=== PATIENT | male | born 1980 | race African-American/Black ===

== ENCOUNTER 2019-12-01 23:12 | Inpatient (IN) ==
[2019-12-01] MEDS ORDERED: CATAPRES PO ONE (23:58)
--- NOTE | 2019-12-02 00:07 | PROVIDER DOCUMENTATION ---
HPI-Syncope/Dizziness - General Chief Complaint: High Blood Sugar Stated Complaint: DIABETES RELATED Time Seen by Provider: 12/01/19 23:49 Source: patient Allergies/Adverse Reactions: Patient Allergies Allergy/AdvReac Type Severity Reaction Status Date / Time No Known Allergies Allergy Verified 12/02/19 04:26 Home Medications: Home Medication List Medication Instructions Recorded Confirmed Last Taken Type Lisinopril 40 mg PO DAILY 12/01/19 12/01/19 Unknown History Metformin HCl 1,000 mg PO BID 12/01/19 12/01/19 Unknown History - History of Present Illness-Syncope/Dizzy Nature of Presenting Problem: Pt is a 39 year old black male with type 2 diabetes and HTN, 2nd visit to [facility] for uncontrolled nausea, vomiting with HTN and near syncope. Initially seen by Dr. Bere sánchez at [facility]. Patient reports that he almost passed out today. Since discharge from [facility] several hours ago, patient continues to feel dizzy , has vomited 4 more times. If witnessed syncope, by whom?: Prior Episodes: reports: multiple episodes today Onset/Duration: reports: abrupt Timing: reports: still present Position/Activity at time of episode: reports: sitting Symptoms prior to episode: reports: headache, lightheaded, visual disturbance, nausea/vomiting. denies: abdominal pain, confusion, diaphoresis, recent head trauma Context: reports: felt faint, almost passed out, other (high glucose). denies: lost consciousness, became unresponsive, collapsed, incontinent of urine, incontinent of stool, lost pulse, seizure activity observed Loss of Consciousness: no loss of consciousness Location of injury. (If syncope resulted in an injury.): reports: none Current Symptoms: reports: nausea, weakness, dizzy, headache, blurred vision. denies: sweaty, chest pain, breathing difficulty, abdominal pain, vomiting, lightheaded Similar symptoms previously: reports: previous diagnosis, workup for same problem Recently Seen Here or By Another Healthcare Provider: Yes (AT [facility] 12/01/2019) - Dizziness Severity in ED: reports: mild Modifying Factors: improves with: nothing Patient usually:: reports: walks without assistance Review of Systems - Adult - REVIEW OF SYSTEMS - ADULT Constitutional: reports: see HPI Eyes: reports: no symptoms reported Ears, Nose, Mouth & Throat: reports: no symptoms reported Cardiovascular: reports: no symptoms reported Respiratory: reports: no symptoms reported Gastrointestinal: reports: see HPI Genitourinary: reports: no symptoms reported Musculoskeletal: reports: no symptoms reported Integumentary: reports: no symptoms reported Neurological: reports: no symptoms reported Psychiatric: reports: no symptoms reported Endocrine: reports: no symptoms reported Hematologic/Lymphatic: reports: no symptoms reported Allergic/Immunologic: reports: no symptoms reported All Other Systems: Reviewed and Negative Past History - Adult - PAST MEDICAL HISTORY-ADULT Review of Records: reports: Old Records Reviewed, Nursing Assessment Review, Medications Reviewed, Social history reviewed & non-contributory. Major Childhood Illnesses: reports: denies history Cardiovascular: reports: denies history, HTN Respiratory: reports: denies history Gastrointestinal: reports: denies history Genitourinary: reports: other (scrotal cellulitis) Musculoskeletal: reports: denies history Neurological: reports: denies history. denies: Seizures/Epilepsy Psychiatric: reports: denies history Endocrine/Immune: reports: Diabetes Other Conditions: reports: denies history - PRIOR SURGERIES/PROCEDURES Surgical/Procedure History: reports: none - IMMUNIZATION STATUS Childhood Immunizations: See Nurse Assessment Flu Vaccine: See Nurse Assessment - FAMILY HISTORY Family History: reviewed, not pertinent - SOCIAL HISTORY Smoking: non-smoker Physical Exam-General - PHYSICAL EXAM-ADULT Initial Vital Signs Reviewed: Yes - CONSTITUTIONAL General Appearance: mild distress, obese, other (semimoist membranes) - EYES Eyes: PERRL/EOMI, pink conjunctivae - HEAD, EARS, NOSE, MOUTH & THROAT HENMT: normocephalic/atraumatic, moist mucous membranes - NECK Neck: non-tender, full range of motion, supple, normal inspection - RESPIRATORY Respiratory: chest non-tender, lungs clear, no pleuratic chest pain, no respiratory distress, no accessory muscle use - CARDIOVASCULAR Cardiovascular: regular rate, rhythm - GASTROINTESTINAL (ABDOMEN) Abdominal Exam: normal bowel sounds, non tender, soft, no organomegaly, no pulsatile mass - LYMPHATIC Lymphatic: no adenopathy - MUSCULOSKELETAL Back Exam: normal inspection, no CVA tenderness, no vertebral tenderness Extremity: normal range of motion, non-tender, normal gait, normal inspection, no pedal edema, no calf tenderness, normal capillary refill - SKIN Integumentary: normal color, warm/dry, other (decreased turgor) - NEUROLOGIC Neurologic: hearing therapist II-XII nml as tested, grossly normal, no motor/sensory deficits - PSYCHIATRIC Psych/Mental Status: normal thought content, normal thought process, oriented x 3, anxious Progress - PLAN OF CARE/RESULTS Progress/Plan/Lab Results: Vital Signs - 8 hr 12/01/19 23:25 12/02/19 00:06 12/02/19 00:28 Temperature 98.0 F Pulse Rate 84 79 83 Respiratory Rate 18 12 14 Blood Pressure 204/112 209/119 211/129 O2 Sat by Pulse Oximetry 95 94 L 95 12/02/19 00:30 12/02/19 00:45 12/02/19 00:49 Temperature Pulse Rate 82 82 96 H Respiratory Rate 13 20 19 Blood Pressure 209/130 198/129 179/116 O2 Sat by Pulse Oximetry 94 L 96 94 L 12/02/19 01:01 12/02/19 01:16 12/02/19 01:19 Temperature Pulse Rate 88 87 89 Respiratory Rate 20 19 19 Blood Pressure 203/131 184/135 187/122 O2 Sat by Pulse Oximetry 96 97 12/02/19 01:21 12/02/19 01:30 12/02/19 01:52 Temperature Pulse Rate 86 84 91 H Respiratory Rate 19 15 20 Blood Pressure 193/125 185/121 170/121 O2 Sat by Pulse Oximetry 95 96 12/02/19 02:00 12/02/19 02:16 12/02/19 02:31 Temperature Pulse Rate 91 H 88 107 H Respiratory Rate 20 20 20 Blood Pressure 196/113 154/105 161/99 O2 Sat by Pulse Oximetry 95 96 12/02/19 02:45 12/02/19 03:00 12/02/19 03:15 Temperature Pulse Rate 94 H 96 H 96 H Respiratory Rate 18 20 18 Blood Pressure 162/97 144/96 149/99 O2 Sat by Pulse Oximetry 98 95 96 12/02/19 03:29 12/02/19 03:30 12/02/19 03:45 Temperature Pulse Rate 90 89 Respiratory Rate 20 18 Blood Pressure 140/94 142/94 O2 Sat by Pulse Oximetry 96 95 Laboratory Results - last 24 hr 12/01/19 12/02/19 12/02/19 23:25 00:03 00:03 Sodium 135 L Potassium 4.1 Chloride 97 L Carbon Dioxide 21 L Anion Gap 18 BUN 31 H Creatinine 2.3 H Estimated GFR/1.73 m2 32 BUN/Creatinine Ratio 13 Glucose 377 H POC Glucose 299 H Calculated Osmolality 292 Calcium 8.9 Acetone Level NEGATIVE 12/02/19 01:30 Sodium Potassium Chloride Carbon Dioxide Anion Gap BUN Creatinine Estimated GFR/1.73 m2 BUN/Creatinine Ratio Glucose POC Glucose 322 H Calculated Osmolality Calcium Acetone Level Orders Category Date Time Status Admit - [facility] Routine AdmDCTranf 12/02/19 03:20 Active Activity - Strict Bedrest ORDERED Care 12/02/19 03:20 Active FSBS/Accucheck Result Q1H Care 12/02/19 01:16 Active Misc. NRSG Communication Order DIRECTED Care 12/02/19 02:13 Active Resuscitation Status Routine Care 12/02/19 03:20 Ordered Vital Signs Order Q 4-HR ASSESS Care 12/02/19 03:20 Active Z-Document. for Tele Applied ORDERED Care 12/02/19 03:22 Active NPO Diet 12/02/19 03:22 Active ACETONE SERUM [CHEM] Stat Lab 12/01/19 23:54 Completed BMP [BASIC METABOLIC PANEL] [CHEM] Stat Lab 12/01/19 23:53 Completed 0.9% Sodium Chloride Inj [Ns] 1,000 ml Med 12/02/19 03:19 Active IV 100 mls/hr 0.9% Sodium Chloride Inj [Ns] 1,000 ml Med 12/02/19 03:20 Discontinued IV 100 mls/hr Clonidine [Catapres] Med 12/01/19 23:58 Discontinued 0.1 mg PO NOW ONE Clonidine [Catapres] Med 12/02/19 03:25 Active 0.1 mg PO Q4H PRN PRN Insulin Human Regular ([place] [Humulin R ([place])] Med 12/02/19 03:20 D iscontinued 8 units SUBQ NOW ONE Insulin Human Regular ([place] [Humulin R ([place])] Med 12/02/19 03:22 Discontinued See Protocol SUBQ NOW ONE Labetalol Med 12/02/19 00:51 Discontinued 20 mg IV NOW ONE Ondansetron [Zofran] Med 12/02/19 00:51 Discontinued 4 mg IV NOW ONE Ondansetron [Zofran] Med 12/02/19 03:20 Active 4 mg IV Q4H PRN PRN Telemetry [OM.EQ] Routine Oth 12/02/19 03:20 Active Transfer/Admit Order [TRANSFER] Routine Transfer 12/02/19 03:24 Completed Result Diagrams: 12/02/19 00:03 - REASSESSMENT Reassessment #1 Time Reassessed: 00:50 Reassessment Comment: pt vomiting, BP still high. new orders now. Reassessment #2 Time Reassessed: 03:00 Status: unchanged Reassessment Comment: continues to have nausea - CONSULTS/PCP/HOSPITALIST Notification #1 *Consult/PCP/Hospitalist*: Dr. Abdi, hospitalist Time Discussed: 03:05 Consult Disposition: Admit - CHANGE OF SHIFT REPORT (ED Provider) 1 Report Given and Care Transferred to:: Dr. 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: unspecified alf insulin use status Qualified Code(s): E11.65 - Type 2 diabetes mellitus with hyperglycemia Hypertension Qualifiers: Hypertension type: unspecified Qualified Code(s): I10 - Essential (primary) hypertension Intractable vomiting Qualifiers: Vomiting type: unspecified Nausea presence: with nausea Qualified Code(s): R11.2 - Nausea with vomiting, unspecified Disposition: ADMITTED INPATIENT 09 Certified Medical Emergency: Emergent Condition: Stable Referrals and Follow-Ups: None,PCP [Primary Care Provider] - - Critical Care Note This patient required my direct & personal management of CC.: No Attestation - Physician/ JED Attestation Patient care was provided by Advanced Practice Provider:: Yes Advanced Practice Provider:: Daria Fairchild V. Advanced Practice Provider documentation review:: The Mid-level provider documentation, treatment plan and medical decision making was reviewed by the physician who agrees with all treatment and medical decision making by the MLP. The physician spent face to face time with patient:: Yes Advanced Practice Provider documentation review:: Supervising physician onsite and consulted in the evaluation and care of this patient. The physician did have a face to face encounter with the patient.
[2019-12-02 00:25] LABS: CALCIUM 8.9 mg/dL (8.8-10.2); CREATININE 2.3 mg/dL (0.7-1.2); POTASSIUM 4.1 mmol/L (3.5-5.1)
[2019-12-02] MEDS ORDERED: ZOFRAN IV ONE (00:51)
[2019-12-02] MEDS ORDERED: LABETALOL IV ONE (00:51)
[2019-12-02] MEDS ORDERED: NS 1,000 ML IV ONE ×2 (03:19→03:20)
[2019-12-02] MEDS ORDERED: ZOFRAN IV PRN (03:20)
[2019-12-02] MEDS ORDERED: HUMULIN R (PARKWAY) SUBQ ONE ×2 (03:20→03:22)
[2019-12-02] MEDS ORDERED: PRINIVIL PO SCH (09:00)
[2019-12-02 09:19] LABS: HEMOGLOBIN A1C 12.8 % (4.8-6.0)
[2019-12-02] MEDS ORDERED: HUMALOG (PARKWAY) ONE (09:19)
[2019-12-02] MEDS: HUMALOG (PARKWAY) SUBQ SCH ×4 (09:25→21:44)
[2019-12-02] MEDS: CATAPRES PO PRN (10:33)
[2019-12-02] MEDS: PRILOSEC PO SCH ×2 (10:33→21:43)
[2019-12-02] MEDS: NS 1,000 ML IV SCH ×2 (10:33→21:44)
[2019-12-02] MEDS ORDERED: FLU VACCINE IM ONE (10:53)
--- NOTE | 2019-12-02 12:54 | Vascular Study Report ---
Venous U/S Bilateral Legs - 12/02/2019 INDICATION: swelling LE; left > right TECHNIQUE: COMPARISON: None FINDINGS: The veins of the lower extremities are fully compressible. There is normal color and pulse wave Doppler signal. Soft tissues are grossly clear. IMPRESSION: Negative exam. Electronically signed by Negro Kumar 12/02/2019 12:52 PM
--- NOTE | 2019-12-02 14:02 | HISTORY AND PHYSICAL ---
PRIMARY CARE PROVIDER: No one. CHIEF COMPLAINT: Passed out, high sugar, high blood pressure. HISTORY OF PRESENT ILLNESS: Mr. Maria E Reich is a 39-year-old male with a medical history of untreated diabetes mellitus type 2 and hypertension, came to [facility] yesterday after experiencing a syncopal spell with convulsions. He was found to have high blood glucose levels along with high blood pressure that was treated and he was discharged home, but after returning home, he started having dizziness again and started throwing up with it, but came back to [facility] ER. Again, he was found to have a high blood glucose level, high blood pressure and those were treated but this time we have actually admitted him for closer observation. It does appear he does have chronic kidney disease that he is unaware of and currently with acute kidney injury on top of it. He also has elevated white blood cells. PAST MEDICAL HISTORY: 1. Diabetes mellitus type 2. 2. Hypertension. 3. Chronic kidney disease stage III. 4. History of right lower extremity swelling secondary to history of cellulitis. 5. History of a staph infection in the scrotum. 6. History of medication noncompliance. 7. Morbid obesity. SURGICAL HISTORY: Scrotal surgery secondary to staph infection, most likely incision and drainage. SOCIAL HISTORY: Denies tobacco. Drinks alcohol maybe once every other month or once a month. Denies any illicit drug use. He is not . He has 1 son, 3 daughters. 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 FAMILY HISTORY: Mother, diabetes and hypertension. Father, unknown. Son, asthma. Three daughters with asthma. ALLERGIES: No known drug allergies. HOME MEDICATIONS: Lisinopril and metformin was ordered for him but he has not been taking that, and we will also hold that given that he has acute kidney injury. REVIEW OF SYSTEMS: Fourteen point review of systems are complete and all were negative except for those mentioned in above HPI. PHYSICAL EXAMINATION: VITAL SIGNS: Temperature 98.9 degrees, heart rate 99, respiratory rate 18, blood pressure 149/104, 100% on room air. GENERAL: Mr. Maria E Reich is a 39-year-old male who is in no acute distress, is able answer questions appropriately. HEENT: Atraumatic, normocephalic. Pupils equal, round, reactive to light. Extraocular movements intact. Mucous membranes are dry. NECK: Trachea midline. CARDIOVASCULAR: S1, S2. Regular rate and rhythm. No rubs, gallops, murmurs. EXTREMITIES: Right lower extremity 2+ pitting edema. Left lower extremity 1+ pitting edema. +2 dorsalis and radial pulses. Negative JVD or carotid bruits. PULMONARY: Clear to auscultation. Bilateral breath sounds. No accessory muscle use or work of breathing noted. GASTROINTESTINAL: Soft, nontender, nondistended. Positive bowel sounds x4. EXTREMITIES: Moves all extremities equally. Full range of motion. NEUROLOGIC: Alert and oriented x3. Follows commands. Sensory is intact. SKIN: Warm, dry, intact. LABORATORY DATA: CBC is from a previous number but it was the same day as presentations, so white blood cell count 37811, hemoglobin 13, hematocrit 40, platelet count 370,000. Today's BMP, sodium 135, potassium 4.1, BUN 31, creatinine 2.3. Creatinine yesterday was 2.8. Blood glucose level is 377. He has a hemoglobin A1c of 12.8. Acetones were negative. IMAGING: None on this AH number. There was a head and cervical spine on the previous AH number that was performed on the , which was yesterday and there was no acute intracranial or cervical spine abnormality. EKG yesterday, sinus tachycardia, rate 110. ASSESSMENT AND PLAN: 1. Syncope with convulsions, which is what initially brought him to the emergency department at [facility]. He had a head CT, cervical spine CT that were both negative, but he was found to be hypertensive with a high blood glucose level. Those were treated and he was sent home. Once home, he got dizzy again and returned back with continued high blood sugar and hypertension so those were managed while admitted. 2. Hypertensive urgency with history of uncontrolled hypertension secondary to medication noncompliance, currently lisinopril which was originally ordered yesterday for discharge. We are going to hold that secondary to the acute kidney injury right now. Blood pressure has decreased. Creatinine has improved. Currently medication-trinh, he has Catapres or clonidine that is p.r.n. Actually it looks like the lisinopril was given, so we will continue it. We will see what the creatinine is tomorrow. If it is still elevated, may have to stop it. 3. Uncontrolled diabetes mellitus type 2. Pattern blood glucoses, sliding scale insulin, diabetic diet. 4. Nausea with vomiting. Antiemetics given. 5. Acute kidney injury on chronic kidney disease stage III. Initially I was going to hold the lisinopril, it has already been given this morning so we will just monitor and see what the blood creatinine is in the morning. If it is elevated, we will hold. Currently he is receiving some IV fluids and the creatinine did drop from 2.8 down to 2.3. 6. Leukocytosis. No signs or symptoms of infection at this time. He is afebrile. 7. Bilateral lower extremity swelling, right greater than left. We will do a venous ultrasound, rule out deep venous thrombosis. 8. Deep venous thrombosis prophylaxis. Sequential compression devices. Dictated by CHAN Carroll for Vipul Mosley MD cc: CHAN Carroll MD
[2019-12-02 16:08] LABS: URINE SOURCE CLEAN CATCH
[2019-12-02 16:10] LABS: BILIRUBIN URINE NEGATIVE (NEGATIVE); BLOOD URINE SMALL (NEGATIVE); COLOR STRAW; GLUCOSE URINE >1000 mg/dL (NEGATIVE); KETONE URINE NEGATIVE (NEGATIVE); LEUKOCYTES URINE NEGATIVE (NEGATIVE); NITRITE URINE NEGATIVE (NEGATIVE); PH URINE 6.5; PROTEIN URINE 200 mg/dL (NEGATIVE); SP GRAVITY URINE 1.013; TURBIDITY URINE CLEAR (CLEAR); UROBILINOGEN URINE NORMAL (NORMAL)
[2019-12-02 16:12] LABS: UR EPITHELIAL CELLS <10 /HPF (<10); URINE BACTERIA NEGATIVE /HPF; URINE RBC <10 /HPF (<10); URINE WBC <10 /HPF (<10)
[2019-12-02] MEDS: TYLENOL PO PRN (21:47)
--- NOTE | 2019-12-02 22:54 | HISTORY AND PHYSICAL ---
ADDENDUM: Patient seen and examined by myself. Full note dictated and discussed with nurse practitioner. Patient presented to the hospital noting that his blood sugars have been elevated. He has been having nausea, vomiting, felt as though he was going to pass out. He has been dizzy. He is noted to have blood pressures at 204/112. He is very pleasant. After treatment, his blood pressure currently is 136/81. He is also noted to have markedly elevated blood sugars in the 300s with an A1c of 12.8, creatinine at 2.3, which is worse than his most recent of 216 where his creatinine was 1.5. We are going to admit him to the hospital, place him on sliding scale insulin, IV fluids, attempt to control his blood pressure and we will follow. cc: Vipul Mosley MD
[2019-12-03 06:29] LABS: BE -1.4 mmoll (-3.0-3.0); BLOOD TYPE ARTERIAL; HCO3-(ACT) 23.8 mmoll (20.0-26.0); METHB 0.7 % (0.0-1.5); PCO2(98.6) 36 mmHg (35-45); PO2(98.6) 87 mmHg (60-100); SAMPLE BLOOD; SAO2 98.9 % (95.0-100.0); THB 13.3 g/dL (11.5-17.4); pH(98.6) 7.41 (7.35-7.45)
[2019-12-03 06:33] LABS: ALLEN TEST YES; MODALITY ROOM AIR
[2019-12-03 06:51] LABS: BASO# 0.03 X1000 (0.0-0.2); BASO% 0.5 % (0.0-0.8); EOS# 0.21 X1000 (0.0-0.7); EOS% 3.2 % (0.0-10.0); HEMATOCRIT 36.3 % (42.0-52.0); HEMOGLOBIN 11.9 g/dL (14.0-18.0); IMM GRAN# 0.03 X1000 (0.0-0.04); IMM GRAN% 0.5 % (0.0-0.5); LYMPH# 0.83 X1000 (1.2-3.4); LYMPH% 12.8 % (20.5-51.1); MCH 27.9 PG (27-31); MCHC 32.8 g/dL (33-37); MONO# 0.49 X1000 (0.11-0.59); MONO% 7.5 % (1.7-9.3); MPV 10.4 FL (7.4-10.4); NEUT# 4.91 X1000 (1.4-6.5); NEUT% 75.5 % (42.2-75.2); PLT 353 X1000 (130-400); RBC 4.27 XMIL (4.7-6.1); RDW 12.3 % (11.5-14.5)
[2019-12-03] MEDS: PRILOSEC PO SCH ×2 (06:58→20:02)
[2019-12-03] MEDS: TYLENOL PO PRN ×2 (06:58→10:21)
[2019-12-03] MEDS: HUMALOG (PARKWAY) SUBQ SCH ×4 (07:00→22:53)
[2019-12-03 07:16] LABS: ALBUMIN 3.4 g/dL (3.5-5.0); CALCIUM 8.3 mg/dL (8.8-10.2); CREATININE 2.4 mg/dL (0.7-1.2); POTASSIUM 4.4 mmol/L (3.5-5.1); TOTAL BILIRUBIN 0.2 mg/dL (0.20-1.00); TOTAL PROTEIN 6.1 g/dL (6.3-8.3)
[2019-12-03] MEDS: LANTUS INSULIN SUBQ SCH (08:23)
[2019-12-03] MEDS: CATAPRES PO PRN (08:23)
[2019-12-03] MEDS: NS 1,000 ML IV SCH ×2 (08:24→17:51)
[2019-12-03] MEDS ORDERED: NORVASC PO SCH (09:00)
[2019-12-03] MEDS: APRESOLINE IV PRN ×2 (10:21→16:49)
[2019-12-03] MEDS ORDERED: NORCO-5 PO ONE (11:36)
[2019-12-03] MEDS ORDERED: NORVASC PO ONE (11:55)
[2019-12-03] MEDS ORDERED: CATAPRES PO ONE (13:24)
--- NOTE | 2019-12-03 18:19 | PROGRESS NOTE ---
DATE: 12/03/2019 SUBJECTIVE: The patient overall notes that he is feeling a little bit better. Denies any fevers or chills. He denies headaches. Denies any focalized weakness. PHYSICAL EXAMINATION: Vital signs reviewed. Temperature 98.5 degrees, pulse 82, respiratory rate 18, BP 175/104.HEENT: Normocephalic. Neck supple. Cardiovascular: Regular rate. Chest clear, nonlabored. Abdomen soft, nondistended. Extremities: Moves all extremities. ASSESSMENT: 1. Hypertensive urgency. Blood pressure is still elevated. We have held the lisinopril due to his acute renal dysfunction, with his creatinine at 2.3 to 2.4. Unsure if lisinopril has anything to do with that. 2. Type 2 diabetes, with a terrible A1c of 12.8 at home. 3. History of syncope with apparent convulsions. He was actually seen at [facility]. CT head and spine were all negative. 4. Leukocytosis. 5. Bilateral lower extremity swelling, with a negative Doppler. Unable to do a CTA due to his renal function. We will not be able to get a VQ scan currently. PLAN: We will continue the patient in the hospital. We have added Norvasc, placed him on clonidine 0.1 t.i.d. and also have added hydralazine as needed. We will continue to follow. cc: Vipul Mosley MD
[2019-12-03] MEDS: CATAPRES PO SCH (20:02)
[2019-12-04] MEDS: TYLENOL PO PRN ×3 (01:09→20:19)
[2019-12-04] MEDS: CATAPRES PO SCH ×3 (05:09→20:19)
[2019-12-04] MEDS: PRILOSEC PO SCH ×3 (05:09→20:19)
[2019-12-04 06:15] LABS: BASO# 0.04 X1000 (0.0-0.2); BASO% 0.5 % (0.0-0.8); EOS# 0.14 X1000 (0.0-0.7); EOS% 1.6 % (0.0-10.0); HEMATOCRIT 38.4 % (42.0-52.0); HEMOGLOBIN 12.6 g/dL (14.0-18.0); IMM GRAN# 0.03 X1000 (0.0-0.04); IMM GRAN% 0.4 % (0.0-0.5); LYMPH# 0.75 X1000 (1.2-3.4); LYMPH% 8.8 % (20.5-51.1); MCH 27.6 PG (27-31); MCHC 32.8 g/dL (33-37); MCV 84.2 FL (81-99); MONO# 0.52 X1000 (0.11-0.59); MONO% 6.1 % (1.7-9.3); MPV 10.2 FL (7.4-10.4); NEUT# 7.08 X1000 (1.4-6.5); NEUT% 82.6 % (42.2-75.2); PLT 397 X1000 (130-400); RBC 4.56 XMIL (4.7-6.1); RDW 12.1 % (11.5-14.5); WBC 8.56 X1000 (4.8-10.8)
[2019-12-04 06:53] LABS: ALBUMIN 3.4 g/dL (3.5-5.0); CALCIUM 8.4 mg/dL (8.8-10.2); CREATININE 2.2 mg/dL (0.7-1.2); MAGNESIUM 1.9 mg/dL (1.5-2.7); POTASSIUM 4.3 mmol/L (3.5-5.1); TOTAL BILIRUBIN 0.3 mg/dL (0.20-1.00); TOTAL PROTEIN 6.6 g/dL (6.3-8.3)
[2019-12-04] MEDS: LANTUS INSULIN SUBQ SCH (08:08)
[2019-12-04] MEDS: HUMALOG (PARKWAY) SUBQ SCH ×4 (08:08→21:07)
[2019-12-04] MEDS: NORVASC PO SCH (08:09)
[2019-12-04] MEDS: NS 1,000 ML IV SCH ×2 (08:15→16:57)
[2019-12-04] MEDS ORDERED: LANTUS INSULIN SUBQ ONE (09:15)
[2019-12-04] MEDS: PRINIVIL PO SCH (10:05)
--- NOTE | 2019-12-04 13:46 | PROGRESS NOTE ---
DATE: 12/04/2019 SUBJECTIVE: Patient with no complaints other than a headache. PHYSICAL EXAMINATION: Vital Signs: Reviewed. Temperature 97, pulse 77, respiratory rate 18, and BP 174/103. General: The patient is an obese male who is in no distress. HEENT: Normocephalic. Neck: Supple. CV: Regular rate. No murmurs. Chest: Clear and nonlabored. Extremities: Moves all extremities. Abdomen: Soft and nondistended. Neurological: No changes. ASSESSMENT: 1. Hypertension. 2. Headache. 3. Uncontrolled diabetes. 4. Acute on chronic kidney injury. PLAN: We are going to continue him in the hospital. We are going to increase his Lantus from 10 units to 14 units. We are going to add back his lisinopril, continue Norvasc and clonidine, and we will follow. Again, discussed with the patient the importance of blood sugar control. cc: Vipul Mosley MD
[2019-12-05] MEDS: TYLENOL PO PRN ×2 (02:57→12:27)
[2019-12-05] MEDS: NS 1,000 ML IV SCH ×2 (03:11→12:08)
[2019-12-05] MEDS ORDERED: NORCO-10 PO ONE (03:29)
[2019-12-05] MEDS ORDERED: NORCO-5 PO ONE (03:45)
[2019-12-05] MEDS: CATAPRES PO SCH ×4 (04:57→20:18)
[2019-12-05 05:40] LABS: BASO# 0.04 X1000 (0.0-0.2); BASO% 0.5 % (0.0-0.8); EOS# 0.09 X1000 (0.0-0.7); EOS% 1.1 % (0.0-10.0); HEMATOCRIT 37.2 % (42.0-52.0); HEMOGLOBIN 12.3 g/dL (14.0-18.0); IMM GRAN# 0.07 X1000 (0.0-0.04); IMM GRAN% 0.9 % (0.0-0.5); LYMPH# 0.62 X1000 (1.2-3.4); LYMPH% 7.8 % (20.5-51.1); MCH 27.7 PG (27-31); MCHC 33.1 g/dL (33-37); MCV 83.8 FL (81-99); MONO# 0.56 X1000 (0.11-0.59); NEUT# 6.62 X1000 (1.4-6.5); NEUT% 82.7 % (42.2-75.2); PLT 381 X1000 (130-400); RBC 4.44 XMIL (4.7-6.1); RDW 12.2 % (11.5-14.5)
[2019-12-05 06:08] LABS: ALBUMIN 3.3 g/dL (3.5-5.0); CALCIUM 8.5 mg/dL (8.8-10.2); CREATININE 2.3 mg/dL (0.7-1.2); MAGNESIUM 1.9 mg/dL (1.5-2.7); POTASSIUM 4.4 mmol/L (3.5-5.1); TOTAL BILIRUBIN 0.2 mg/dL (0.20-1.00); TOTAL PROTEIN 6.5 g/dL (6.3-8.3)
[2019-12-05] MEDS: HUMALOG (PARKWAY) SUBQ SCH ×4 (06:55→22:15)
[2019-12-05] MEDS: NORVASC PO SCH (09:19)
[2019-12-05] MEDS: PRILOSEC PO SCH ×2 (09:19→20:18)
[2019-12-05] MEDS: LANTUS INSULIN SUBQ SCH (09:19)
[2019-12-05] MEDS: PRINIVIL PO SCH (09:30)
--- NOTE | 2019-12-05 12:12 | Diag Imaging Result Doc PS360 ---
EXAM: CT HEAD W/O CONTRAST 12/05/2019 HISTORY: worse headache ever TECHNIQUE: This exam was performed using automated exposure control, adjustment of mA or kV according to patient size, and/or use of iterative reconstruction technique. COMMENT: There is no evidence of mass effect, bleed, or abnormal extra-axial fluid collection. The appearance the brain has not changed significantly since 12/01/2019. The visualized paranasal sinuses are clear. The calvarium is intact. IMPRESSION: No evidence of acute intracranial disease. Electronically signed by Agapito Cabrales 12/05/2019 12:10 PM
--- NOTE | 2019-12-05 13:49 | PROGRESS NOTE ---
DATE: 12/05/2019 SUBJECTIVE: Patient seen. Notes earlier this morning when his blood pressures were markedly elevated at 178/111, he had a severe headache. Now, he notes the headache is much improved. PHYSICAL EXAMINATION: Vital Signs: Temperature 98 degrees, pulse 87, BP current 164/99, although it has been as high as 178/111. HEENT: Normocephalic. Neck: Supple. Cardiovascular: Regular rate. Chest: Clear. Abdomen: Soft. Extremities: Moves all extremities. ASSESSMENT: 1. Diabetes. Poor control. We are going to continue Lantus at 14 units. 2. Syncope, resolved. 3. Headache. We are going to check a CT. 4. Hypertensive urgency. We are going to increase lisinopril to 40, clonidine to 0.2 three times daily, and continue Norvasc. Hopefully, can discharge home either later this afternoon or tomorrow, depends on his blood pressures. cc: Vipul Mosley MD
--- NOTE | 2019-12-05 15:44 | EKG Report ---
Test Performed on : 12/05/2019 08:15:20 AM Test Reason : cp Blood Pressure : / mmHG Vent. Rate : 085 BPM Atrial Rate : 085 BPM P-R Int : 158 ms QRS Dur : 090 ms QT Int : 376 ms P-R-T Axes : 065 031 094 degrees QTc Int : 447 ms Normal sinus rhythm. Nonspecific T wave abnormality Abnormal ECG When compared with ECG of 01-DEC-2019 15:26, (Unconfirmed) Nonspecific T wave abnormality, worse in Anterolateral leads Confirmed by Jourdan Hernandez MD ([id number]) on 12/07/2019 6:31:48 AM
[2019-12-06] MEDS: PRILOSEC PO SCH ×3 (05:45→20:27)
[2019-12-06] MEDS: CATAPRES PO SCH ×3 (05:45→20:27)
[2019-12-06 05:54] LABS: BASO# 0.06 X1000 (0.0-0.2); BASO% 0.8 % (0.0-0.8); EOS# 0.19 X1000 (0.0-0.7); EOS% 2.5 % (0.0-10.0); HEMATOCRIT 38.3 % (42.0-52.0); HEMOGLOBIN 12.8 g/dL (14.0-18.0); IMM GRAN# 0.02 X1000 (0.0-0.04); IMM GRAN% 0.3 % (0.0-0.5); LYMPH# 0.81 X1000 (1.2-3.4); LYMPH% 10.6 % (20.5-51.1); MCH 27.9 PG (27-31); MCHC 33.4 g/dL (33-37); MCV 83.6 FL (81-99); MONO# 0.64 X1000 (0.11-0.59); MONO% 8.4 % (1.7-9.3); NEUT# 5.93 X1000 (1.4-6.5); NEUT% 77.4 % (42.2-75.2); PLT 373 X1000 (130-400); RBC 4.58 XMIL (4.7-6.1); RDW 12.1 % (11.5-14.5); WBC 7.65 X1000 (4.8-10.8)
[2019-12-06 06:02] LABS: ALBUMIN 3.3 g/dL (3.5-5.0); CALCIUM 8.6 mg/dL (8.8-10.2); CREATININE 2.2 mg/dL (0.7-1.2); MAGNESIUM 1.9 mg/dL (1.5-2.7); POTASSIUM 4.4 mmol/L (3.5-5.1); TOTAL BILIRUBIN 0.3 mg/dL (0.20-1.00); TOTAL PROTEIN 6.4 g/dL (6.3-8.3)
[2019-12-06] MEDS: HUMALOG (PARKWAY) SUBQ SCH ×4 (06:56→20:33)
[2019-12-06] MEDS: NS 1,000 ML IV SCH (06:56)
[2019-12-06] MEDS ORDERED: CATAPRES PO ONE (07:15)
[2019-12-06] MEDS: PRINIVIL PO SCH ×2 (08:41→20:30)
[2019-12-06] MEDS: LANTUS INSULIN SUBQ SCH (08:41)
[2019-12-06] MEDS: NORVASC PO SCH ×2 (08:41→20:26)
[2019-12-06] MEDS ORDERED: PRINIVIL PO SCH (09:00)
[2019-12-06] MEDS: TYLENOL PO PRN (13:25)
[2019-12-06] MEDS ORDERED: MOTRIN PO ONE (15:27)
--- NOTE | 2019-12-06 19:35 | PROGRESS NOTE ---
DATE: 12/06/2019 SUBJECTIVE: The patient notes that he had a severe headache last night, but it is actually improved this morning. Denies any fevers or chills. PHYSICAL EXAM: Temperature 98 degrees, pulse 89, BP 124/102 to 173/116.General: The patient is lying in bed. He is awake. He is pleasant. He is in no distress. HEENT: Normocephalic. Neck: Supple. Cardiovascular: Regular rate. Chest clear, nonlabored. Abdomen: Soft, nondistended, nontender. Extremities: Moves all extremities. Neurologic: No changes. ASSESSMENT: 1. Uncontrolled malignant hypertension. Patient currently is on Norvasc 5 b.i.d., lisinopril 20 b.i.d., clonidine 0.3 t.i.d. We are going to add hydrochlorothiazide. Watch him and check a renal artery ultrasound as the patient very well may have renal artery stenosis given his severe recalcitrant blood pressure. 2. Diabetes. His A1c at home was 12.8. We have added Lantus. Blood sugars are improved. 3. Chronic renal failure stage 3. This does not appear that it is going to improve at this point. 4. Hyponatremia. Hopefully patient can continue to improve and be discharged home soon. cc: Vipul Mosley MD
[2019-12-07] MEDS: TYLENOL PO PRN (00:55)
[2019-12-07] MEDS: APRESOLINE IV PRN (01:03)
[2019-12-07] MEDS: CATAPRES PO SCH (04:58)
[2019-12-07] MEDS: HUMALOG (PARKWAY) SUBQ SCH ×2 (06:47→12:33)
[2019-12-07] MEDS: PRILOSEC PO SCH (06:50)
[2019-12-07 07:11] LABS: BASO# 0.04 X1000 (0.0-0.2); BASO% 0.4 % (0.0-0.8); EOS# 0.04 X1000 (0.0-0.7); EOS% 0.4 % (0.0-10.0); HEMATOCRIT 39.7 % (42.0-52.0); HEMOGLOBIN 13.6 g/dL (14.0-18.0); IMM GRAN# 0.05 X1000 (0.0-0.04); IMM GRAN% 0.5 % (0.0-0.5); LYMPH# 0.68 X1000 (1.2-3.4); LYMPH% 6.9 % (20.5-51.1); MCH 28.1 PG (27-31); MCHC 34.3 g/dL (33-37); MONO# 0.55 X1000 (0.11-0.59); MONO% 5.6 % (1.7-9.3); MPV 9.8 FL (7.4-10.4); NEUT# 8.52 X1000 (1.4-6.5); NEUT% 86.2 % (42.2-75.2); PLT 414 X1000 (130-400); RBC 4.84 XMIL (4.7-6.1); RDW 12.1 % (11.5-14.5); WBC 9.88 X1000 (4.8-10.8)
[2019-12-07 07:25] VITALS: BP 166/83
[2019-12-07 07:28] LABS: ALBUMIN 3.5 g/dL (3.5-5.0); CALCIUM 8.9 mg/dL (8.8-10.2); CREATININE 2.2 mg/dL (0.7-1.2); MAGNESIUM 1.9 mg/dL (1.5-2.7); POTASSIUM 4.5 mmol/L (3.5-5.1); TOTAL BILIRUBIN 0.2 mg/dL (0.20-1.00); TOTAL PROTEIN 6.9 g/dL (6.3-8.3)
[2019-12-07 08:20] LABS: ANISOCYTOSIS 1+; LYMPHS 5 % (21-51); MONO 4 % (1-9); SEGS 91 % (42-75)
--- NOTE | 2019-12-07 08:45 | Diag Imaging Result Doc PS360 ---
EXAM: US DUPLEX RENAL ARTY/VEIN LMTD HISTORY: uncontrolled htn TECHNIQUE: Renal arterial Doppler ultrasound COMPARISON: None. FINDINGS: The left kidney measures 10.2 x 6.0 x 5.6 cm. Normal renal echotexture and cortical thickness. No hydronephrosis. Segmental arterial pressures obtained. The right renal artery ratio is 1.4. The resistive index is 0.6. The right kidney measures 9.9 x 5.8 x 6.0 cm. Normal renal echotexture and cortical thickness. No hydronephrosis. Segmental arterial pressures obtained. The renal artery ratio is 1.6. The resistive index is 0.7. IMPRESSION: No renal artery stenosis. Electronically signed by Duncan Nelson 12/07/2019 8:43 AM
[2019-12-07] MEDS: PRINIVIL PO SCH (08:58)
[2019-12-07] MEDS: NORVASC PO SCH (08:58)
[2019-12-07] MEDS ORDERED: HYDROCHLOROTHIAZIDE PO SCH (09:00)
[2019-12-07] MEDS ORDERED: LANTUS INSULIN SUBQ SCH ×2 (09:00)
--- NOTE | 2019-12-08 06:15 | DISCHARGE SUMMARY ---
ADMISSION DATE: 12/02/2019 DISCHARGE DATE: 12/07/2019 ADMITTING DIAGNOSES: 1. Syncopal episode with convulsions. 2. Hypertensive urgency. 3. Uncontrolled diabetes type 2. 4. Nausea and vomiting. 5. Acute kidney injury on chronic kidney disease stage 3. 6. Leukocytosis. 7. Bilateral lower extremity edema. DISCHARGE DIAGNOSES: 1. Uncontrolled malignant hypertension. 2. Diabetes mellitus type 2. 3. Chronic kidney disease stage 3. PROCEDURES AND FINDINGS: 1. Ultrasound venous Doppler of the bilateral lower extremities done on 12/02/[address] was negative[address] 2. Head CT done on 12/05/2019 did show no evidence of acute intracranial disease. 3. Ultrasound of the duplex renal artery and vein did show no renal artery stenosis. HOSPITAL COURSE: Mr. Reich is a 39-year-old male who presented to the ER after experiencing a syncopal episode with convulsions. He was also found to have high glucose levels and high blood sugars. He was treated and discharged home. When he returned home, he did have some dizziness and he started having some nausea and vomiting so he came back to the ER. He was found at that time to have high glucose and high blood pressure. He was ultimately admitted at that time. He was noted to have chronic kidney disease, and acute kidney injury at that time also with elevated white blood cells. The patient was noted to have bilateral lower extremity edema. Venous Doppler was done, it was negative. The patient was having extensive headaches. Head CT was done which was negative. Throughout the course of the hospital stay, patient was started on several different medications for his blood pressure and his blood sugar. Blood pressure has improved. Headaches have improved. A1c on admission was noted to be 12.8. The patient was started on a regimen for his blood sugar. He was started on a diabetic diet. Blood sugars are still poorly controlled. We have started him on Levemir. We are going to discharge him home today. We did do a renal ultrasound prior to discharge to check for renal artery stenosis. It was negative. We are going to discharge him home on several different blood pressure medications because his blood pressure has improved. His creatinine also has improved. On admission, his creatinine initially was noted to be 2.8, and is now down to 2.2. Blood sugars remain elevated, but he will need to follow a diabetic diet and take his insulin as prescribed. He will need to follow up with his primary care doctor in 1 week. HOME MEDICATIONS: 1. Clonidine 0.3 mg p.o. q.8 hours. 2. Hydrochlorothiazide 25 mg p.o. daily. 3. Insulin glargine 18 units subcutaneous daily. 4. Amlodipine 5 mg p.o. b.i.d. 5. Prilosec 40 mg p.o. daily. 6. Lisinopril 20 mg p.o. b.i.d. 7. Acetaminophen 650 mg p.o. q.6 hours p.r.n. DISCHARGE DIET: Patient is resume healthy heart diet 1500 calorie ADA as tolerated. DISCHARGE ACTIVITY: Patient is to resume activity as tolerated. DISCHARGE DISPOSITION: Patient is to discharge home with self care. The patient is to follow up with his primary care physician in 1 week. If he does not have a primary care provider, he must call the physician referral hotline at [phone] to obtain a list of providers here currently taking new patients. For all other questions and concerns, he is to call his primary care provider. Dictated by CHAN Ureña for Vipul Mosley MD cc: Vipul Mosley MD Primary Care Provider
== END 2019-12-07 12:53 | disposition home or self-care (01) | DRG 305 ==
LOC: P.EDIPHOLD 23:12 → P.ED 23:12 → P.MEDSURG 23:12 → SUATTDRO 12-02 06:30 → OBSVTOIN 12-02 06:30 → P.MEDSURG 12-03 18:28
PROVIDERS: ATTEND Family Medicine

== ENCOUNTER 2019-12-10 06:44 | Inpatient (IN) ==
[2019-12-10] MEDS ORDERED: APRESOLINE IV ONE (07:50)
[2019-12-10 08:09] LABS: BASO# 0.05 X1000 (0.0-0.2); BASO% 0.5 % (0.0-0.8); EOS# 0.08 X1000 (0.0-0.7); EOS% 0.8 % (0.0-10.0); HEMATOCRIT 40.5 % (42.0-52.0); IMM GRAN# 0.02 X1000 (0.0-0.04); IMM GRAN% 0.2 % (0.0-0.5); LYMPH% 8.3 % (20.5-51.1); MCH 28.2 PG (27-31); MCHC 34.6 g/dL (33-37); MCV 81.5 FL (81-99); MONO# 0.69 X1000 (0.11-0.59); MONO% 7.2 % (1.7-9.3); NEUT# 8.01 X1000 (1.4-6.5); PLT 481 X1000 (130-400); RBC 4.97 XMIL (4.7-6.1); RDW 11.9 % (11.5-14.5); WBC 9.65 X1000 (4.8-10.8)
[2019-12-10 08:15] LABS: ALBUMIN 3.7 g/dL (3.5-5.0); CALCIUM 9.4 mg/dL (8.8-10.2); CREATININE 2.8 mg/dL (0.7-1.2); POTASSIUM 4.3 mmol/L (3.5-5.1); TOTAL BILIRUBIN 0.3 mg/dL (0.20-1.00); TOTAL PROTEIN 6.7 g/dL (6.3-8.3)
--- NOTE | 2019-12-10 08:29 | Diag Imaging Result Doc PS360 ---
EXAM: CT HEAD W/O CONTRAST - 12/10/2019 HISTORY: AMS TECHNIQUE: CT head without contrast COMPARISON: 12/05/2019 FINDINGS: There is no evidence of intracranial hemorrhage, mass effect, midline shift, or hydrocephalus. There is no evidence of infarct, although acute infarcts may not be immediately visible. There is no evidence of skull fracture. Visualized portions of paranasal sinuses and mastoid air cells appear clear. IMPRESSION: No visible acute intracranial abnormality. No hemorrhage or mass effect. This exam was performed using automated exposure control, adjustment of mA or kV according to patient size, and/or use of iterative reconstruction technique. Electronically signed by Wilfrido Shen 12/10/2019 8:26 AM
[2019-12-10 08:32] LABS: BLOOD TYPE ARTERIAL; HCO3-(ACT) 22.5 mmoll (20.0-26.0); METHB 1.4 % (0.0-1.5); O2HB 95.2 % (95.0-99.0); PCO2(98.6) 25 mmHg (35-45); PO2(98.6) 98 mmHg (60-100); SAMPLE BLOOD; SAO2 98.6 % (95.0-100.0); THB 15.6 g/dL (11.5-17.4); pH(98.6) 7.48 (7.35-7.45)
[2019-12-10 09:03] LABS: ALLEN TEST YES; MODALITY ROOM AIR
--- NOTE | 2019-12-10 09:03 | PROVIDER DOCUMENTATION ---
HPI-General Adult - General Chief Complaint: High Blood Sugar Stated Complaint: REVISIT / RETURN Time Seen by Provider: 12/10/19 07:21 Source: patient, family Allergies/Adverse Reactions: Patient Allergies Allergy/AdvReac Type Severity Reaction Status Date / Time No Known Allergies Allergy Verified 12/10/19 07:27 Home Medications: Home Medication List Medication Instructions Recorded Confirmed Last Taken Type Acetaminophen [Tylenol] 650 mg PO Q6H PRN PRN tab 12/05/19 12/10/19 Unknown Rx Omeprazole [Prilosec] 40 mg PO DAILY@0700 #30 cap 12/05/19 12/10/19 Unknown Rx Amlodipine [Norvasc] 5 mg PO BID #60 tab 12/07/19 12/10/19 Unknown Rx Clonidine [Catapres] 0.3 mg PO Q8HR #90 tab 12/07/19 12/10/19 Unknown Rx Hydrochlorothiazide 25 mg PO DAILY #30 tab 12/07/19 12/10/19 Unknown Rx Insulin Glargine,Hum.rec.anlog 18 unit SQ DAILY #3 insuln.pen 12/07/19 12/10/19 Unknown Rx [Lantus Solostar] LISINOpril [Prinivil] 20 mg PO BID #60 tab 12/07/19 12/10/19 Unknown Rx - History of Present Illness -Gen Adult Nature of Presenting Problems: PT CONTINUES VERY CONFUSED AND MOM CALLED AMBULANCE AND TALKED PT INTO COMING BACK TO HOSPITAL. DISCHARGED HERE 2 DAYS AGO WITH UNCONTROLLED HTN AND UNCONTRO LLED DM. PT UNABLE TO TELL ME HIS OR CURRETN YEAR. HE IS LETHARGIC BUT NO SLURRED SPEECH OR FOCAL WEAKNESS. MOM SHOWS ME HIS NEW BOTTLES OF MED, 4 BP Rx. Review of Systems - Adult - REVIEW OF SYSTEMS - ADULT Constitutional: reports: no symptoms reported. denies: chills Eyes: reports: no symptoms reported Ears, Nose, Mouth & Throat: reports: no symptoms reported Cardiovascular: reports: no symptoms reported Respiratory: reports: no symptoms reported. denies: cough, shortness of breath Gastrointestinal: reports: no symptoms reported Genitourinary: reports: no symptoms reported Musculoskeletal: reports: no symptoms reported Integumentary: reports: no symptoms reported Neurological: reports: no symptoms reported, headache/migraines (NO HEADACHE AT THIS TIME!). denies: ataxia, dizziness/vertigo Psychiatric: reports: no symptoms reported. denies: anxiety Endocrine: reports: no symptoms reported Hematologic/Lymphatic: reports: no symptoms reported Allergic/Immunologic: reports: no symptoms reported All Other Systems: Reviewed and Negative Past History - Adult - PAST MEDICAL HISTORY-ADULT Review of Records: reports: Old Records Reviewed, Nursing Assessment Review, Medications Reviewed, Social history reviewed & non-contributory. Major Childhood Illnesses: reports: denies history Cardiovascular: reports: denies history, HTN Respiratory: reports: denies history Gastrointestinal: reports: denies history Obstetrical/Gynecological: reports: denies history Genitourinary: reports: other (scrotal cellulitis) Musculoskeletal: reports: denies history Neurological: reports: denies history. denies: Seizures/Epilepsy Psychiatric: reports: denies history Endocrine/Immune: reports: Diabetes Other Conditions: reports: denies history - PRIOR SURGERIES/PROCEDURES Surgical/Procedure History: reports: none - IMMUNIZATION STATUS Childhood Immunizations: See Nurse Assessment Flu Vaccine: See Nurse Assessment - FAMILY HISTORY Family History: reviewed, not pertinent Physical Exam-General - PHYSICAL EXAM-ADULT Initial Vital Signs Reviewed: Yes - CONSTITUTIONAL General Appearance: appears well, alert, no apparent distress - EYES Eyes: PERRL/EOMI, pink conjunctivae - HEAD, EARS, NOSE, MOUTH & THROAT HENMT: normocephalic/atraumatic, moist mucous membranes, normal ENT inspection - NECK Neck: full range of motion, supple - RESPIRATORY Respiratory: lungs clear, no respiratory distress - CARDIOVASCULAR Cardiovascular: regular rate, rhythm, no JVD, no murmur - GASTROINTESTINAL (ABDOMEN) Abdominal Exam: non tender, soft - MUSCULOSKELETAL Back Exam: normal inspection Extremity: non-tender, normal inspection, no pedal edema, normal capillary refill - SKIN Integumentary: normal color, normal turgor, warm/dry - NEUROLOGIC Neurologic: quality control specialist II-XII nml as tested, grossly normal, no motor/sensory deficits - PSYCHIATRIC Psych/Mental Status: normal mood/affect, normal thought content, normal thought process, oriented x 3 Progress - PLAN OF CARE/RESULTS Progress/Plan/Lab Results: Vital Signs - 8 hr 12/10/19 06:50 Temperature 98.1 F Pulse Rate 88 Respiratory Rate 20 Blood Pressure 158/110 O2 Sat by Pulse Oximetry 100 Laboratory Results - last 24 hr 12/10/19 12/10/19 12/10/19 06:50 07:20 07:20 WBC RBC Hgb Hct MCV MCH MCHC RDW Std Deviation Plt Count MPV Immature Gran % (Auto) Neut % (Auto) Lymph % (Auto) [place] % (Auto) Eos % (Auto) Baso % (Auto) Immature Gran # (Auto) Neut # (Auto) Lymph # (Auto) [place] # (Auto) Eos # (Auto) Baso # (Auto) Sodium Potassium Chloride Carbon Dioxide Anion Gap BUN Creatinine Estimated GFR/1.73 m2 BUN/Creatinine Ratio Glucose POC Glucose 326 H Calculated Osmolality Calcium Magnesium 2.1 Total Bilirubin AST ALT Alkaline Phosphatase Ammonia Total Protein Albumin Globulin Albumin/Globulin Ratio Plasma Lactate Free T4 Acetone Level NEGATIVE 12/10/19 12/10/19 12/10/19 07:20 07:20 07:20 WBC 9.65 RBC 4.97 Hgb 14.0 Hct 40.5 L MCV 81.5 MCH 28.2 MCHC 34.6 RDW Std Deviation 11.9 Plt Count 481 H MPV 10.0 Immature Gran % (Auto) 0.2 Neut % (Auto) 83.0 H Lymph % (Auto) 8.3 L [place] % (Auto) 7.2 Eos % (Auto) 0.8 Baso % (Auto) 0.5 Immature Gran # (Auto) 0.02 Neut # (Auto) 8.01 H Lymph # (Auto) 0.80 L [place] # (Auto) 0.69 H Eos # (Auto) 0.08 Baso # (Auto) 0.05 Sodium 129 L Potassium 4.3 Chloride 94 L Carbon Dioxide 19 L Anion Gap 17 BUN 36 H Creatinine 2.8 H Estimated GFR/1.73 m2 25 BUN/Creatinine Ratio 13 Glucose 372 H POC Glucose Calculated Osmolality 282 Calcium 9.4 Magnesium Total Bilirubin 0.30 AST 11 ALT 16 Alkaline Phosphatase 48 Ammonia Total Protein 6.7 Albumin 3.7 Globulin 3.0 Albumin/Globulin Ratio 1.0 Plasma Lactate Free T4 1.38 Acetone Level 12/10/19 12/10/19 07:20 08:05 WBC RBC Hgb Hct MCV MCH MCHC RDW Std Deviation Plt Count MPV Immature Gran % (Auto) Neut % (Auto) Lymph % (Auto) [place] % (Auto) Eos % (Auto) Baso % (Auto) Immature Gran # (Auto) Neut # (Auto) Lymph # (Auto) [place] # (Auto) Eos # (Auto) Baso # (Auto) Sodium Potassium Chloride Carbon Dioxide Anion Gap BUN Creatinine Estimated GFR/1.73 m2 BUN/Creatinine Ratio Glucose POC Glucose Calculated Osmolality Calcium Magnesium Total Bilirubin AST ALT Alkaline Phosphatase Ammonia 14 L Total Protein Albumin Globulin Albumin/Globulin Ratio Plasma Lactate 1.4 Free T4 Acetone Level Orders Category Date Time Status Saline Loc NOW Care 12/10/19 07:[address] HEAD W/O CONTRAST [CT] Stat Exams 12/10/19 08:10 Completed ABG [RESP] Routine Lab 12/10/19 07:53 Ordered ACETONE SERUM [CHEM] Stat Lab 12/10/19 07:20 Completed AMMONIA [CHEM] Stat Lab 12/10/19 08:05 Completed CBC WITH ELECTRONIC DIFF [HEME] Stat Lab 12/10/19 07:20 Completed COMPREHENSIVE METABOLIC PANEL [CHEM] Stat Lab 12/10/19 07:20 Completed FREE T4 Stat Lab 12/10/19 07:20 Completed LACTATE, PLASMA [CHEM] Stat Lab 12/10/19 07:20 Completed MAGNESIUM [CHEM] Stat Lab 12/10/19 07:20 Completed URINALYSIS W/POSS RFLX CULT [URINALYSIS] Stat Lab 12/10/19 07:53 Uncollected URINE DRUG SCREEN PL Stat Lab 12/10/19 07:53 Uncollected Hydralazine [Apresoline] Med 12/10/19 07:50 Discontinued 10 mg IV NOW ONE Result Diagrams: 12/10/19 07:20 12/10/19 07:20 - CONSULTS/PCP/HOSPITALIST Notification #1 *Consult/PCP/Hospitalist*: DR CONNELL Time Discussed: 10:26 Consult Disposition: Admit (MRI PLEASE) Departure - Departure Date of Disposition Decision: 12/10/19 Time of Disposition Decision: 09:06 DIAGNOSIS: Frequent headaches Altered mental status Qualifiers: Altered mental status type: disorientation Qualified Code(s): R41.0 - Disorientation, unspecified Hyperglycemia due to type 2 diabetes mellitus Qualifiers: Diabetes mellitus jail insulin use: without manager intermediate use Qualified Code(s): E11.65 - Type 2 diabetes mellitus with hyperglycemia Hypertension Qualifiers: Hypertension type: essential hypertension Qualified Code(s): I10 - Essential (primary) hypertension Disposition: ADMITTED INPATIENT 09 Certified Medical Emergency: Emergent Condition: Stable Additional Instructions: ED Follow Up Instructions: You have been treated by a care provider in the Emergency Department. These instructions are being provided to you so you can have an understanding of how to care for yourself upon discharge. Upon discharge from the Emergency Department, you are responsible for making arrangements for follow-up care by a physician of your choice. Take all prescribed medications as directed. Return to the Emergency Department immediately for any new or worsening symptoms. You may call the Physician Referral phone number at [phone] to obtain a list of Physicians who are taking new patients. Referrals and Follow-Ups: None,PCP [Primary Care Provider] - Discharge Education: Migraine Headache, [id number] - Critical Care Note This patient required my direct & personal management of CC.: No Attestation - Physician/ JED Attestation The physician spent face to face time with patient:: Yes Advanced Practice Provider documentation review:: Supervising physician onsite and consulted in the evaluation and care of this patient. The physician did have a face to face encounter with the patient.
[2019-12-10] MEDS ORDERED: ATIVAN IV ONE ×2 (12:21→15:05)
[2019-12-10 18:12] LABS: URINE SOURCE CLEAN CATCH
[2019-12-10 18:23] LABS: BILIRUBIN URINE NEGATIVE (NEGATIVE); BLOOD URINE TRACE (NEGATIVE); COLOR YELLOW; GLUCOSE URINE >1000 mg/dL (NEGATIVE); KETONE URINE 20 mg/dL (NEGATIVE); LEUKOCYTES URINE NEGATIVE (NEGATIVE); NITRITE URINE NEGATIVE (NEGATIVE); PH URINE 6.5; PROTEIN URINE 300 mg/dL (NEGATIVE); SP GRAVITY URINE 1.016; TURBIDITY URINE CLEAR (CLEAR); UR EPITHELIAL CELLS <10 /HPF (<10); URINE BACTERIA NEGATIVE /HPF; URINE RBC <10 /HPF (<10); URINE WBC <10 /HPF (<10); UROBILINOGEN URINE NORMAL (NORMAL)
[2019-12-10 19:46] LABS: UR AMPHETAMINES QUAL NONE DETECTED (NONE DETECT); UR BARBITUATES QUAL NONE DETECTED (NONE DETECT); UR BENZODIAZEPIN QUAL NONE DETECTED (NONE DETECT); UR CANNABINOIDS QUAL NONE DETECTED (NONE DETECT); UR COCAINE QUAL NONE DETECTED (NONE DETECT); UR METHADONE QUAL NONE DETECTED (NONE DETECT); UR OPIATES QUAL NONE DETECTED (NONE DETECT); UR OXYCODONE QUAL NONE DETECTED (NONE DETECT); UR PCP QUAL NONE DETECTED (NONE DETECT)
[2019-12-10] MEDS: CATAPRES PO SCH (20:49)
[2019-12-10] MEDS: NORVASC PO SCH (20:50)
[2019-12-10] MEDS: HUMULIN R SUBQ SCH (20:50)
[2019-12-10] MEDS: PRINIVIL PO SCH (20:50)
[2019-12-11] MEDS: HUMULIN R SUBQ SCH ×5 (01:28→20:45)
--- NOTE | 2019-12-11 03:55 | HISTORY AND PHYSICAL ---
CHIEF COMPLAINT: High blood sugar. HISTORY OF PRESENT ILLNESS: Patient is a 39-year-old male who presented to the hospital with his mother noting that he is confused. Mother states she called an ambulance. The patient was just recently in the hospital where he was admitted secondary to poorly controlled hypertension and diabetes at home. His blood pressures were 190s-200s systolic, 110s diastolic. On discharge, his blood pressures were much better although he was on 4 medicines. His blood sugars also had drifted down into the low 200s on Lantus. He was instructed on how to use Lantus at home. While in the hospital previously, patient had no slurred speech. No focal weakness. He did have a headache but CT, MRI both were normal. He nor the family complained of any confusion/disorientation at the time. He was discharged home 2 days ago. He came back today with his mother noting he was confused, disoriented. While in the ER, he became quite agitated, slamming the exam room door. Patient unfortunately has refused twice to have an MRI despite being given IV Ativan. ALLERGIES: No known drug allergies. MEDICATIONS: Tylenol, omeprazole, Norvasc 5 b.i.d., Catapres 0.3 t.i.d., hydrochlorothiazide 25, lisinopril 20 b.i.d., and Lantus 18 units daily. REVIEW OF SYSTEMS: As noted above. The patient does apparently have a history of migraines although he complains of no headache currently. Denies any weakness or focal pain. When asked the date, he states it is 19 something. Patient denies any fevers, chills, blurred vision, change in vision. Denies any focalized weakness. Denies any GI or issues currently. PAST MEDICAL HISTORY: Hypertension, diabetes. FAMILY HISTORY: Positive for hypertension. SOCIAL HISTORY: Patient denies alcohol or illicit substance use. PHYSICAL EXAMINATION: VITAL SIGNS: Reviewed. Temperature 98 degrees, pulse 88, respiratory 20, BP 158/110, currently 146/70, saturation 100% on room air. GENERAL: Patient is in no respiratory distress. While in the room by himself, he is calm. HEENT: Normocephalic. NECK: Supple. CARDIOVASCULAR: Regular rate. No murmurs. CHEST: Clear and nonlabored. ABDOMEN: Soft, nondistended, nontender. NEUROLOGIC: Patient is awake, alert. He knows he is at the hospital. He is unable to answer the month or the year. ASSESSMENT: 1. Hyponatremia. Sodium is at 129. 2. Chronic renal failure. His creatinine remained 2.2 to 2.4 in the hospital, currently is 2.8. Certainly possible that the addition of his lisinopril caused a slight bump. We will continue to follow. 3. Diabetes with hyperglycemia. His blood sugar today is 372. It was in the low 200s on discharge. 4. Hypertension. Blood pressure is actually improved after patient calmed down. 5. Acute delirium of undetermined origin. He is confused, unable to answer questions appropriately. PLAN: We attempted to get an MRI, but this was unsuccessful as patient states he is unable to have that done. We are going to admit him to the hospital, control his blood sugars, his blood pressure. We will follow him. If he is still having symptoms, he may require an EEG when it is available. cc: Vipul Mosley MD
[2019-12-11] MEDS: CATAPRES PO SCH ×2 (04:11→16:07)
[2019-12-11] MEDS: PRILOSEC PO SCH (06:31)
[2019-12-11 08:18] LABS: HEMATOCRIT 42.3 % (42.0-52.0); HEMOGLOBIN 14.5 g/dL (14.0-18.0); MCH 28.5 PG (27-31); MCHC 34.3 g/dL (33-37); MCV 83.3 FL (81-99); RBC 5.08 XMIL (4.7-6.1); RDW 12.7 % (11.5-14.5); WBC 10.32 X1000 (4.8-10.8)
[2019-12-11 08:44] LABS: ALB/GLOB RATIO 1.1; ALBUMIN 3.5 g/dL (3.5-5.0); CALCIUM 9.7 mg/dL (8.8-10.2); CREATININE 3.4 mg/dL (0.7-1.2); MAGNESIUM 2.4 mg/dL (1.5-2.7); POTASSIUM 4.3 mmol/L (3.5-5.1); TOTAL BILIRUBIN 0.35 mg/dL (0.20-1.00); TOTAL PROTEIN 6.7 g/dL (6.3-8.3)
[2019-12-11] MEDS: NORVASC PO SCH (08:55)
[2019-12-11] MEDS: PRINIVIL PO SCH (08:55)
[2019-12-11] MEDS: HYDROCHLOROTHIAZIDE PO SCH (08:55)
[2019-12-11] MEDS: LANTUS INSULIN SUBQ SCH (09:04)
--- NOTE | 2019-12-11 16:21 | PROGRESS NOTE ---
DATE: 12/11/2019 INTERVAL HISTORY: Mr. Reich was admitted for confusion and agitation overnight. CT scan head was unremarkable. SUBJECTIVE: Mr. Reich is slightly more awake and alert today than he did yesterday as per the family. However, he still has episodes of intermittent confusion and he is sleepy. VITALS: Temperature of 98.3 degrees, pulse 91 respiratory 18, blood pressure 98/69. He is saturating 100% on room air.General: Mr. Reich does not remember the events leading up to current admission. He remembers his date, though. PHYSICAL EXAMINATION: HEENT: Oral cavity is moist. Lungs: Air entry bilaterally equal, no wheezing or crackles. Cardiovascular: S1, S2 normal. No murmur or gallop. Abdomen: Soft, nontender. No lower extremity edema. Neurologic: He is drowsy but arousable he answers most questions appropriately. He has intermittent confusion and difficulty following commands though I was able to carry out neurological examination properly. He has left-sided ptosis and left-sided dysconjugate gaze. Pupils are bilaterally equal reacting to light. Otherwise, no facial asymmetry. His speech and cough appears intact. His sensations are intact to touch and pinch bilateral upper and lower extremity as well as face. His power is 5 on 5 on bilateral shoulder shrug, elbow flexion, extension, wrist flexion, extension, overhead abduction, bilateral hip joint, knee joint and ankle joint. He had difficulty performing [id number] testing both upper extremities largely due to drowsiness. There was no focality otherwise. [place] [address], hemoglobin 14.5, platelet 494,000. He does have chronic kidney disease stage 4, low sodium low chloride, hyperglycemia. No positive microbiological data. IMAGING: Head CT did not have any acute intracranial abnormality. ASSESSMENT AND PLAN: 1. Acute encephalopathy. Head CT did not have a cerebrovascular accident . There is no focality on my examination. There are some reports of suspected seizure in the past. I do not have definitive records. Family members at bedside do not have any information. I will consider getting an MRI of the brain in future depending on his course. He may need EEG on Friday current differential includes seizure with postictal confusion, posterior reversible encephalopathy syndrome considering he was significantly hypertensive on previous admission and on presentation he did have elevated diastolic blood pressure. I will continue to monitor. He does not have any fevers, chills, or leukocytosis to suggest infection. 2. Essential hypertension: Resume home Lisinopril, clonidine, amlodipine, HCTZ. 3. Insulin-dependent diabetes mellitus: Resume home Insulin Glargine. I will add mealtime insulin and keep him on sliding scale insulin. Disposition: Continue to monitor him on the 3rd floor. Plan of care extensively discussed with patient. His mother who works for [employer] is also present at the bedside. I addressed all of her questions and concerns and answered them satisfactorily. cc: Woodrow Burch MD MTDLeno
[2019-12-11] MEDS: HUMALOG SUBQ SCH (18:47)
[2019-12-12] MEDS: CATAPRES PO SCH ×3 (03:15→13:24)
[2019-12-12] MEDS: PRINIVIL PO SCH ×2 (03:16→08:37)
[2019-12-12] MEDS: NORVASC PO SCH ×2 (03:16→08:38)
[2019-12-12] MEDS: TYLENOL PO PRN ×2 (06:36→16:13)
[2019-12-12] MEDS: PRILOSEC PO SCH (06:36)
[2019-12-12] MEDS: HUMULIN R SUBQ SCH ×4 (06:36→20:14)
[2019-12-12] MEDS: HUMALOG SUBQ SCH ×3 (06:37→16:13)
[2019-12-12 07:31] LABS: BASO# 0.14 X1000 (0.0-0.2); BASO% 1.8 % (0.0-0.8); EOS# 0.21 X1000 (0.0-0.7); EOS% 2.6 % (0.0-10.0); HEMATOCRIT 42.4 % (42.0-52.0); HEMOGLOBIN 14.6 g/dL (14.0-18.0); IMM GRAN# 0.02 X1000 (0.0-0.04); IMM GRAN% 0.3 % (0.0-0.5); LYMPH# 1.63 X1000 (1.2-3.4); LYMPH% 20.4 % (20.5-51.1); MCH 28.3 PG (27-31); MCHC 34.4 g/dL (33-37); MCV 82.2 FL (81-99); MONO# 0.81 X1000 (0.11-0.59); MONO% 10.2 % (1.7-9.3); NEUT# 5.17 X1000 (1.4-6.5); NEUT% 64.7 % (42.2-75.2); PLT 540 X1000 (130-400); RBC 5.16 XMIL (4.7-6.1); RDW 12.1 % (11.5-14.5); WBC 7.98 X1000 (4.8-10.8)
[2019-12-12 08:08] LABS: CALCIUM 9.2 mg/dL (8.8-10.2); CREATININE 3.8 mg/dL (0.7-1.2); POTASSIUM 3.7 mmol/L (3.5-5.1)
[2019-12-12] MEDS: LANTUS INSULIN SUBQ SCH (08:37)
[2019-12-12] MEDS: HYDROCHLOROTHIAZIDE PO SCH (08:38)
[2019-12-12] MEDS: MOTRIN PO PRN ×2 (13:23→17:46)
--- NOTE | 2019-12-12 14:43 | PROGRESS NOTE ---
DATE: 12/12/2019 SUBJECTIVE: Mr. Reich has no primary care physician. He came in on 12/10/2019 with high blood sugar. A 39-year-old presented to the hospital with mother noting that he was confused. Mother states that she called an ambulance. The patient was just recently in the hospital, although he was admitted for secondary poorly-controlled hypertension and diabetes. Blood pressures were 190 to 200 systolic, 110 diastolic. Discharge blood pressure was much better. He is on 4 medications. His blood sugars also had drifted down into the low 200s on Lantus. Instructed on how to use Lantus at home. While in the hospital previously, the patient had no slurred speech, no focal weakness. He did have a headache, but CT and MRI were both normal. He nor his family complained of any confusion or disorientation at the time of his discharge 2 days ago. Came back with his mother, confused, disoriented. In the emergency room, he became quite agitated, slamming the exam door. He unfortunately refused twice to have an MRI despite IV Ativan, and admitted. DIAGNOSES: 1. Hyponatremia. Sodium 129. 2. Chronic renal failure. Creatinine was 2 0.2 to 2.4. Currently, it was 2.8. Possible addition of lisinopril could have caused it to go up. 3. Diabetes, hyperglycemia. 4. Hypertension. 5. Acute delirium, undetermined origin. OBJECTIVE: General: Currently he was sleeping, did not want to be aroused. He did wake up and answer questions, yes or no. He states he still has a headache. It is more of a frontal headache, and he wanted to use some ibuprofen. Vital Signs: Temperature 98.4 degrees, pulse 92, respirations 20, blood pressure 130/91. HEENT: Pupils are equal, round. Neck: No distended neck veins. Lungs: Clear in all lung rodrigues. Cardiovascular: Regular rhythm and rate without murmur or S3. IMAGING AND LABORATORY DATA: Blood sugar has been 306, 286, and 236. CT of his head without contrast: No visible acute intracranial abnormality. No hemorrhage or mass effect. ASSESSMENT AND PLAN: 1. Acute encephalopathy. Head CT without contrast did not have any sign of acute injury. There was no focal neurologic deficit on exam yesterday per Dr. Burch. There are some reports of suspected seizure in the past. I do not have any definite records. Family members at bedside do not have any new information. Will consider getting an MRI of the brain, and may need an electroencephalogram. Current differential includes seizure with postictal confusion, posterior reversible encephalopathy syndrome considering he had significant hypertension on previous admission. On presentation, he had elevated diastolic blood pressure. Continue to monitor. 2. Essential hypertension. Blood pressure is better. 3. Diabetes mellitus type 2. Will continue to follow pattern sugars. Sugars are running between 230 and 300 right now. REVIEW OF ORDERS: He is on Klonopin 0.3 mg p.o. every 8 hours, he is on Norvasc 5 mg p.o. b.i.d., hydrochlorothiazide 25 mg daily, Motrin 400 mg p.o. every 4 hours p.r.n., lisinopril 20 mg p.o. b.i.d., Prilosec 40 mg daily. His lab from today shows white count 7980, hematocrit 42, platelet count 540,000. Sodium 129, potassium 3.7, chloride 93, BUN 56, creatinine 3.8, which has gone up from 2.8 when he came in. His urine drug screen was completely unremarkable. No sign of opiates, oxycodone, methadone, barbiturates, phencyclidine, amphetamines, benzodiazepines, cocaine, or cannabinoids. His acetone level was negative. We will get an MRI of the brain. Actually, I think they had ordered that. I do not see results yet though. His renal function looks a little worse, so I do not know if we need to stop the KISHA inhibitors and maybe go up, use a different agent, so maybe we will stop the Prinivil, go up on the Norvasc to 10 mg twice a day. cc: Raymundo Kellogg MD
[2019-12-13] MEDS: NORVASC PO SCH ×3 (02:51→20:44)
[2019-12-13] MEDS: CATAPRES PO SCH ×4 (02:51→20:42)
[2019-12-13] MEDS: HUMALOG SUBQ SCH ×3 (06:09→16:38)
[2019-12-13] MEDS: HUMULIN R SUBQ SCH ×4 (06:09→21:47)
[2019-12-13] MEDS: PRILOSEC PO SCH (06:09)
[2019-12-13 07:47] LABS: CALCIUM 8.9 mg/dL (8.8-10.2); CREATININE 3.8 mg/dL (0.7-1.2)
[2019-12-13] MEDS: TYLENOL PO PRN (07:59)
[2019-12-13] MEDS: LANTUS INSULIN SUBQ SCH (08:31)
[2019-12-13] MEDS: HYDROCHLOROTHIAZIDE PO SCH (08:31)
[2019-12-13] MEDS: MOTRIN PO PRN ×2 (08:54→16:37)
--- NOTE | 2019-12-13 13:09 | PROGRESS NOTE ---
DATE: 12/13/2019 SUBJECTIVE: He still has a headache, but overall he feels better than yesterday. OBJECTIVE: Vital Signs: He remains afebrile. Temperature 97.3 degrees, pulse 74, respirations 18, and blood pressure 112/71. HEENT: Pupils are equal and round. Lungs: Clear in all lung rodrigues. Cardiovascular: Regular rhythm and rate without murmur or S3. Input and Output: Urine output was 2200 mL so a good urine output. ASSESSMENT AND PLAN: Acute encephalopathy. 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 They called the paramedics, and went to the hospital. Reports that they had treated him for some hypertension. Then, they let him go home. He complained of a headache, came back in, and blood pressure was running a little high. CT was normal. She reports that he refused an MRI, but they would like to get an MRI of his head. His renal function creatinine is above [address] Turner has evaluated. 1. Acute encephalopathy. There were reports that he had a seizure when paramedics arrived a week ago Friday. Family members at the bedside did not have any different information. He has never had a history of seizures before so we will get an MRI of his head without contrast. Differential could include a postictal confusion, posterior reversible encephalopathy syndrome considering his hypertension on previous admission and his headache. 2. Essential hypertension. I took him off his KISHA inhibitor because of his acute kidney injury. We did do an aorta renal ultrasound, did not see any renal artery stenosis. I am going to decrease his Norvasc. I encouraged him to drink fluids. His IV he pulled out, and does not want it back in. We will see what Dr. Turner recommends. 3. Lastly, diabetes mellitus. We will follow his sugars as they were running a little bit high. cc: Raymundo Kellogg MD
[2019-12-14] MEDS: CATAPRES PO SCH (05:04)
[2019-12-14] MEDS: HUMULIN R SUBQ SCH ×3 (06:44→17:12)
[2019-12-14] MEDS: PRILOSEC PO SCH (06:44)
[2019-12-14] MEDS: HUMALOG SUBQ SCH ×3 (07:55→17:13)
[2019-12-14 08:04] LABS: CALCIUM 8.9 mg/dL (8.8-10.2); CREATININE 3.4 mg/dL (0.7-1.2); POTASSIUM 3.4 mmol/L (3.5-5.1)
[2019-12-14] MEDS: HYDROCHLOROTHIAZIDE PO SCH (08:06)
[2019-12-14] MEDS: LANTUS INSULIN SUBQ SCH (08:07)
[2019-12-14] MEDS: NORVASC PO SCH (08:07)
[2019-12-14] MEDS: MOTRIN PO PRN (08:15)
[2019-12-14] MEDS: TYLENOL PO PRN (09:40)
[2019-12-14] MEDS ORDERED: FIORICET PO PRN (09:57)
--- NOTE | 2019-12-14 10:10 | PROGRESS NOTE ---
DATE: 12/14/2019 SUBJECTIVE: Mr. Reich is a 39-year-old who continues to have headaches. He is not able to get an MRI. They wanted to get an MRI of the head at their request, but he just will not tolerate it. He still has a headache, but he wants to go home. Blood pressure has been very well controlled. In fact, we probably need to let his blood pressure come up some. OBJECTIVE: Vitals: Temperature 98.6 degrees, pulse 79, respirations 18, blood pressure was 97/57. HEENT: Pupils are equal and round. Lungs: Clear in all lung rodrigues. Cardiovascular: Regular rhythm and rate without murmur or S3. LABORATORY DATA: Reviewing labs from yesterday show sodium 131, potassium 3.4, chloride 97, BUN 57, creatinine 3.4, which is coming down very nicely. Blood sugars 272, 341, 342. His head CT without contrast with no visible acute intracranial abnormality. No hemorrhage or mass effect. ASSESSMENT AND PLAN: 1. Acute encephalopathy which is improved. His mental status is good. 2. Essential hypertension. He seemed to have hypertensive acceleration and blood pressure is a little on the low side, so I am going to back down on his blood pressure medicines. I stopped his KISHA inhibitors because he was having acute kidney injury. 3. Acute kidney injury which appears to be improving. I am going to stop his hydrochlorothiazide. I am going to decrease the Klonopin to 0.1 mg twice a day and stay on it and then have the Norvasc today at 5 mg twice a day. I am going to try some Fioricet for his headaches and see if that gives him a little relief. cc: Raymundo Kellogg MD
[2019-12-14 16:24] VITALS: BP 119/102
--- NOTE | 2019-12-14 19:41 | DISCHARGE SUMMARY ---
ADMISSION DATE: 12/10/2019 DISCHARGE DATE: HISTORY AND HOSPITAL COURSE: This is a 39-year-old who presented to the hospital with his mother on 12/11/2019 confused and had called an ambulance. The patient was just recently in the hospital, admitted secondary to poorly controlled hypertension and diabetes. Blood pressure is 190 to 200 systolic, 110 diastolic. On discharge, blood pressure was much better, although he was on 4 medications. His blood sugar drifted down the 200s on Lantus. He was instructed how to use Lantus at home. While in the hospital he had no slurred speech. No facial weakness. No headache. Had CT and MRI. CT of the head was unremarkable. MRI I think he never was able to do. The patient complained of confusion and disorientation and brought him in. He was just discharged 2 days ago. He has refused the MRI I think twice. We tried to do it again while he was in the hospital and he is just not able to do it because of claustrophobia. He continued to have a frontal headache, although his he was oriented and his cognitive function had improved and noted that his blood pressures were running 100 or below in the 90s. I have backed off on his some of his blood pressure medicines. He is taking [employer] at home and I told him to quit doing that. Of course, he has had headaches before was taking [employer] Pow[employer], so I think the question is whether he is getting headaches from rebound headaches from the [employer] or blood pressure being low, so I diminished his medicine. He really wanted to go home, was insistent on going home so I will let him go home. DISCHARGE MEDICATIONS: He can take his acetaminophen as needed for headache. He will take his Norvasc 5 mg twice a day. I am going to give him some Fioricet to take in case he gets headaches and we will decrease his clonidine down to 0.1 mg twice a day and gave him 30 with 5 refills and have him stop the ibuprofen if he can. Continue his Lantus insulin he was taking 18 units I think daily. Continue his Prilosec. I stopped his hydrochlorothiazide and I stopped his Prinivil and his previous dose of Klonopin, which he was taking 0.3 mg q.8. He needs to find a primary care and follow up. He had some renal insufficiency I thought was secondary to KISHA inhibitor that did improve some. His creatinine had gone down from I think above 3 and his urine output was good. cc: Raymundo Kellogg MD
[2019-12-14] MEDS ORDERED: CATAPRES PO SCH (21:00)
--- NOTE | 2019-12-16 13:15 | Carotid Study ---
DATE: 12/10/2019 PROCEDURE: Bilateral duplex and color flow imaging of the carotid arteries performed using the [employer] vivid E9 Ultrasound System with a 9L-D transducer. REFERRING PHYSICIAN: Dr. Mosley STENOGRAPHER: ANJEL Figueroa. A 39-year-old male. The velocities in cm/sec of both carotid systems were reviewed. The right vertebral artery had forward flow. The right ICA/CCA ratio is 0.44 corresponding 2% stenosis of 0 to 39 percent. The left vertebral had forward flow. The left ICA/CCA ratio was 0.61 corresponding to 2% stenosis of 0 to 39 percent. INTERPRETATION: Normal bilateral carotid arterial study. cc: MD Vipul Enrique MD
== END 2019-12-14 19:50 | disposition home or self-care (01) | DRG 683 ==
LOC: P.ED 06:44 → SUATTDRO 16:35 → 3N 16:35
PROVIDERS: ATTEND Emergency Medicine